=== PATIENT | male | born 1960 | race African-American/Black ===

== ENCOUNTER 2018-04-01 06:02 | Inpatient (IN) | payer MEDICAID ==
[~2018-04-01] VITALS: Ht 185.4 cm; Wt 70.3 kg
[2018-04-01] VITALS (53 sets, daily range): BP systolic 77–172; BP diastolic 43–144
[2018-04-01] MEDS ORDERED: NORMAL SALINE 0.9% 10 ML SYR ONE (07:03)
[2018-04-01] MEDS ORDERED: THROMBIN (BOVINE) 5000 UNITS/VIAL TOP ONE (07:03)
[2018-04-01] MEDS ORDERED: LIDOCAINE HCL/EPINEPHRINE 1%-EPI 1:100,000 20 ML VIAL ONE (07:04)
[2018-04-01] MEDS ORDERED: BACITRACIN 50,000 UNITS/VIAL ONE (07:04)
[2018-04-01] MEDS ORDERED: GELATIN SPONGE,COMPRESSED SZ 100 ONE (07:18)
[2018-04-01] MEDS ORDERED: DEXAMETHASONE 10 MG/ML VIAL IV ONE (07:30)
[2018-04-01 07:45] LABS: BASOPHILS % 0.9 % (0.0-2.0); EOSINOPHILS % 4.1 % (0.0-5.0); HEMATOCRIT. 45.1 % (42.0-52.0); HEMOGLOBIN. 14.6 g/dL (14.0-18.0); MEAN CORPUSCULAR HEMOGLOBIN 26.1 pg (28.0-32.0); MEAN CORPUSCULAR VOLUME 80.6 fL (80.0-94.0); MEAN PLATELET VOLUME 7.9 fl (7.4-10.4); MONOCYTES % 7.6 % (2.0-8.0); NEUTROPHILS % 50.4 % (40.0-76.0); PLATELET 204 x1000/uL (130-400); RED CELL DISTRIBUTION WIDTH 18.8 % (11.6-14.6)
[2018-04-01 07:53] LABS: CHLORIDE 105 mEq/L (98-107)
[2018-04-01 07:56] LABS: PARTIAL THROMBOPLASTIN TIME 35.5 sec (23.4-31.0); PROTHROMBIN TIME 10.1 sec (9.1-11.1)
[2018-04-01 08:35] LABS: CLARITY URINE CLEAR (CLEAR); COLOR URINE YELLOW (YELLOW); KETONES URINE NEGATIVE (NEGATIVE); LEUKOCYTE ESTERASE URINE NEGATIVE (NEGATIVE); NITRITE URINE NEGATIVE (NEGATIVE); OCCULT BLOOD URINE NEGATIVE (NEGATIVE); PROTEIN URINE NEGATIVE (NEGATIVE); SPECIFIC GRAVITY URINE 1.003 (1.005-1.030); UROBILINOGEN URINE 0.2 E.U./dL (0.2-1.0)
[2018-04-01] MEDS ORDERED: DEXT 5%/0.45% NACL 1000ML 1,000 ML IV ONE (09:24)
[2018-04-01 09:35] LABS: *AMPHETAMINES SCREEN URINE NEGATIVE (NEGATIVE); *BARBITURATES SCREEN URINE NEGATIVE (NEGATIVE); *BENZODIAZEPINES SCREEN URINE PRESUMTIVE POSITIVE (NEGATIVE)
[2018-04-01 09:36] LABS: *COCAINE SCREEN URINE PRESUMTIVE POSITIVE (NEGATIVE); CANNABINOID URINE SCREEN NEGATIVE (NEGATIVE); METHADONE URINE SCREEN NEGATIVE (NEGATIVE); OPIATES URINE SCREEN NEGATIVE (NEGATIVE); PHENCYCLIDINE URINE SCREEN NEGATIVE (NEGATIVE)
[2018-04-01] MEDS ORDERED: FENTANYL CITRATE/PF 50MCG/ML 2ML VIAL ONE ×2 (09:38→09:41)
[2018-04-01] MEDS ORDERED: ROCURONIUM BROMIDE 10MG/ML VIAL 5ML IV ONE ×2 (09:39→09:41)
[2018-04-01] MEDS ORDERED: PROPOFOL 200MG/20ML VIAL IV ONE (09:41)
[2018-04-01] MEDS ORDERED: NEOSTIGMINE METHYLSULFATE 1MG/ML 10 ML VIAL ONE (09:41)
[2018-04-01] MEDS ORDERED: MIDAZOLAM HCL 2 MG/2 ML VIAL ONE (09:41)
[2018-04-01] MEDS ORDERED: GLYCOPYRROLATE 0.2 MG/ML 2ML VIAL ONE (09:42)
[2018-04-01] MEDS ORDERED: IPRATROPIUM/ALBUTEROL 0.5-3(2.5)MG/3ML NEB INH PRN (09:45)
[2018-04-01] MEDS ORDERED: NICARDIPINE 100 MG in SODIUM CHLORIDE 0.9% 60 ML IV PRN ×2 (09:45→11:00)
[2018-04-01] MEDS ORDERED: ONDANSETRON HCL 4MG/2ML INJ IV PRN ×2 (09:45→10:30)
[2018-04-01] MEDS ORDERED: VANCOMYCIN HCL 500 MG/VIAL ONE (10:06)
[2018-04-01] MEDS ORDERED: ALBUTEROL 90MCG/PUFF 17GM INHALER INH ONE (10:08)
[2018-04-01] MEDS ORDERED: MEPERIDINE HCL/PF 25MG/ML CPJ IV PRN (10:30)
[2018-04-01] MEDS ORDERED: LABETALOL 5MG/ML SYR 20 MG/4 ML SYRINGE IV PRN (10:30)
[2018-04-01] MEDS ORDERED: HYDROMORPHONE HCL/PF 2MG/ML CPJ IV PRN (10:30)
[2018-04-01] MEDS ORDERED: HYDROMORPHONE HCL/PF 2MG/ML (OR) ONE (10:32)
[2018-04-01] MEDS ORDERED: PROPOFOL 10MG/ML 100ML 100 ML IV SCH (12:00)
[2018-04-01] MEDS ORDERED: LABETALOL HCL 5MG/ML VIAL 20ML IV ONE (12:31)
[2018-04-01] MEDS: NICARDIPINE 100 MG in SODIUM CHLORIDE 0.9% 60 ML IV PRN (13:05)
[2018-04-01] MEDS: PROPOFOL 10MG/ML 100ML 100 ML IV SCH ×2 (13:51→19:53)
[2018-04-01] MEDS: DEXT 5%/LACTATED RINGERS 1,000 ML IV SCH ×2 (14:09→19:53)
[2018-04-01] MEDS: DEXAMETHASONE 4MG/ML 1ML VIAL IV SCH ×3 (14:09→23:45)
[2018-04-01 14:23] LABS: BG BASE EXCESS -11.9 mmol/L (-2.0-2.0); BG FRACTION INSPIRED OXYGEN 50; BG HCO3 ACT 16.5 mmol/L (22.0-26.0); BG METHEMOGLOBIN 0.3 % (0.0-1.5); BG OXYGEN SATURATION 95.9 % (92.0-98.5); BG OXYHEMOGLOBIN 93.7 % (94.0-97.0); BG PCO2 46.7 mmHg (35.0-45.0); BG PEEP (cmH2O) 0 cmH2O; BG PH 7.166 (7.350-7.450); BG PO2 104.2 mmHg (75.0-100.0); BG SAMPLE SITE RIGHT RADIAL; BG TIDAL VOLUME(mL) 500 mL; BG TOTAL HEMOGLOBIN 14.6 g/dL (12.0-18.0); BG VENT MODE VENT - SIMV; BG VENT RATE 10 set
[2018-04-01 15:55] LABS: BG BASE EXCESS -9.9 mmol/L (-2.0-2.0); BG CARBOXYHEMOGLOBIN 1.7 % (0.5-1.5); BG DEOXYHEMOGLOBIN 4.3 % (0.0-5.0); BG FRACTION INSPIRED OXYGEN 50; BG HCO3 ACT 17.4 mmol/L (22.0-26.0); BG METHEMOGLOBIN 0.4 % (0.0-1.5); BG OXYGEN SATURATION 95.6 % (92.0-98.5); BG OXYHEMOGLOBIN 93.6 % (94.0-97.0); BG PCO2 43.4 mmHg (35.0-45.0); BG PH 7.221 (7.350-7.450); BG PO2 95.3 mmHg (75.0-100.0); BG SAMPLE SITE RIGHT RADIAL; BG TIDAL VOLUME(mL) 500 mL; BG TOTAL HEMOGLOBIN 14.4 g/dL (12.0-18.0); BG VENT MODE VENT - A/C; BG VENT RATE 14 set
[2018-04-01] MEDS: VANCOMYCIN 1 G PREMIX 200 ML IV SCH (22:03)
[2018-04-02] VITALS (91 sets, daily range): BP systolic 85–220; BP diastolic 9–164
[2018-04-02] MEDS: PROPOFOL 10MG/ML 100ML 100 ML IV SCH ×2 (01:23→06:45)
[2018-04-02] MEDS: DEXT 5%/LACTATED RINGERS 1,000 ML IV SCH ×2 (05:09→17:04)
[2018-04-02] MEDS: DEXAMETHASONE 4MG/ML 1ML VIAL IV SCH ×4 (05:21→23:56)
[2018-04-02 05:52] LABS: BASOPHILS % 0.2 % (0.0-2.0); HEMATOCRIT. 40.5 % (42.0-52.0); HEMOGLOBIN. 12.8 g/dL (14.0-18.0); LYMPHOCYTES % 14.2 % (20.0-50.0); MEAN CORPUSCULAR HEMOGLOBIN 25.5 pg (28.0-32.0); MEAN CORPUSCULAR VOLUME 80.7 fL (80.0-94.0); MEAN PLATELET VOLUME 8.1 fl (7.4-10.4); MONOCYTES % 3.9 % (2.0-8.0); NEUTROPHILS % 81.7 % (40.0-76.0); PLATELET 186 x1000/uL (130-400); RED BLOOD CELL COUNT 5.02 mill/uL (4.7-6.1); RED CELL DISTRIBUTION WIDTH 19.1 % (11.6-14.6)
[2018-04-02 06:16] LABS: CHLORIDE 106 mEq/L (98-107)
[2018-04-02] MEDS: MORPHINE SULFATE 4 MG/ML CPJ (NOT FOR IM USE) IV PRN ×3 (09:07→23:09)
[2018-04-02 09:20] LABS: BG BASE EXCESS -4.1 mmol/L (-2.0-2.0); BG CARBOXYHEMOGLOBIN 1.1 % (0.5-1.5); BG DEOXYHEMOGLOBIN 2.5 % (0.0-5.0); BG FRACTION INSPIRED OXYGEN 50; BG HCO3 ACT 20.5 mmol/L (22.0-26.0); BG METHEMOGLOBIN 0.4 % (0.0-1.5); BG OXYGEN SATURATION 97.5 % (92.0-98.5); BG PCO2 36.2 mmHg (35.0-45.0); BG PH 7.371 (7.350-7.450); BG PO2 98.7 mmHg (75.0-100.0); BG SAMPLE SITE RIGHT RADIAL; BG TIDAL VOLUME(mL) 550 mL; BG TOTAL HEMOGLOBIN 13.7 g/dL (12.0-18.0); BG VENT MODE VENT - A/C; BG VENT RATE 18 set
[2018-04-02] MEDS: VANCOMYCIN 1 G PREMIX 200 ML IV SCH ×2 (09:55→22:25)
[2018-04-02] MEDS ORDERED: ENOXAPARIN 40MG/0.4ML SYR SUBCUT SCH (13:00)
[2018-04-02 13:05] LABS: BG BASE EXCESS -2.2 mmol/L (-2.0-2.0); BG CARBOXYHEMOGLOBIN 0.9 % (0.5-1.5); BG DEOXYHEMOGLOBIN 6.9 % (0.0-5.0); BG FRACTION INSPIRED OXYGEN 40; BG HCO3 ACT 22.1 mmol/L (22.0-26.0); BG METHEMOGLOBIN 0.5 % (0.0-1.5); BG OXYHEMOGLOBIN 91.7 % (94.0-97.0); BG PCO2 36.5 mmHg (35.0-45.0); BG PO2 68.8 mmHg (75.0-100.0); BG PRESSURE SUPPORT 8; BG SAMPLE SITE LEFT RADIAL; BG TOTAL HEMOGLOBIN 14.4 g/dL (12.0-18.0); BG VENT MODE VENT - CPAP
[2018-04-02] MEDS: NICARDIPINE 100 MG in SODIUM CHLORIDE 0.9% 60 ML IV PRN (17:05)
[2018-04-03] VITALS (65 sets, daily range): BP systolic 32–207; BP diastolic 13–121
[2018-04-03] MEDS: DEXT 5%/LACTATED RINGERS 1,000 ML IV SCH ×4 (02:36→23:29)
[2018-04-03] MEDS: MORPHINE SULFATE 4 MG/ML CPJ (NOT FOR IM USE) IV PRN (02:37)
[2018-04-03] MEDS: DEXAMETHASONE 4MG/ML 1ML VIAL IV SCH ×3 (05:47→18:23)
[2018-04-03] MEDS ORDERED: LISINOPRIL 5MG TABLET PO SCH (08:00)
[2018-04-03] MEDS ORDERED: LISINOPRIL 10MG TABLET PO SCH (08:00)
[2018-04-03] MEDS ORDERED: ZOLPIDEM TARTRATE 5MG TABLET PO PRN (08:00)
[2018-04-03 08:29] LABS: BASOPHILS % 0.1 % (0.0-2.0); HEMATOCRIT. 43.7 % (42.0-52.0); HEMOGLOBIN. 13.9 g/dL (14.0-18.0); LYMPHOCYTES % 8.3 % (20.0-50.0); MEAN CORPUSCULAR HEMOGLOBIN 25.5 pg (28.0-32.0); MEAN CORPUSCULAR VOLUME 79.9 fL (80.0-94.0); MEAN PLATELET VOLUME 7.7 fl (7.4-10.4); MONOCYTES % 3.9 % (2.0-8.0); NEUTROPHILS % 87.7 % (40.0-76.0); PLATELET 181 x1000/uL (130-400); RED BLOOD CELL COUNT 5.47 mill/uL (4.7-6.1); RED CELL DISTRIBUTION WIDTH 18.6 % (11.6-14.6)
[2018-04-03 08:44] LABS: CHLORIDE 107 mEq/L (98-107)
[2018-04-03] MEDS: AMLODIPINE 10MG TABLET PO SCH ×2 (09:00→13:33)
[2018-04-03] MEDS ORDERED: METOPROLOL TARTRATE 25MG TABLET PO SCH (09:00)
[2018-04-03 10:43] LABS: CLARITY URINE CLEAR (CLEAR); COLOR URINE YELLOW (YELLOW); KETONES URINE NEGATIVE (NEGATIVE); LEUKOCYTE ESTERASE URINE NEGATIVE (NEGATIVE); NITRITE URINE NEGATIVE (NEGATIVE); OCCULT BLOOD URINE 1+ (NEGATIVE); PH URINE 6.5 (4.5-8.0); PROTEIN URINE NEGATIVE (NEGATIVE); SPECIFIC GRAVITY URINE 1.012 (1.005-1.030)
[2018-04-03] MEDS: VANCOMYCIN 1 G PREMIX 200 ML IV SCH (11:03)
[2018-04-03] MEDS ORDERED: LISINOPRIL 10MG TABLET PO NR (13:30)
[2018-04-03] MEDS: LISINOPRIL 10MG TABLET PO SCH (18:24)
[2018-04-03] MEDS ORDERED: ATORVASTATIN CALCIUM 40MG TABLET PO SCH (21:00)
[2018-04-04] VITALS (11 sets, daily range): BP systolic 118–161; BP diastolic 69–99
[2018-04-04] MEDS: DEXAMETHASONE 4MG/ML 1ML VIAL IV SCH ×2 (00:30→06:46)
[2018-04-04 05:38] LABS: HEMATOCRIT. 40.9 % (42.0-52.0); HEMOGLOBIN. 13.1 g/dL (14.0-18.0); MEAN CORPUSCULAR HEMOGLOBIN 25.8 pg (28.0-32.0); MEAN CORPUSCULAR VOLUME 80.7 fL (80.0-94.0); RED BLOOD CELL COUNT 5.08 mill/uL (4.7-6.1); RED CELL DISTRIBUTION WIDTH 18.5 % (11.6-14.6)
[2018-04-04 06:49] LABS: CHLORIDE 106 mEq/L (98-107)
[2018-04-04 07:30] LABS: PLATELET ESTIMATE SLIGHTLY DECREASED
[2018-04-04 07:31] LABS: MEAN PLATELET VOLUME 7.6 fl (7.4-10.4); PLATELET 123 x1000/uL (130-400)
[2018-04-04] MEDS: AMLODIPINE 10MG TABLET PO SCH (08:27)
[2018-04-04] MEDS: LISINOPRIL 10MG TABLET PO SCH (08:28)
[2018-04-04] MEDS: MORPHINE SULFATE 4 MG/ML CPJ (NOT FOR IM USE) IV PRN (08:28)
== END 2018-04-04 12:20 | disposition left against medical advice (07) | DRG 23 ==
LOC: ER 06:02 → ORIP 07:40 → EDBEDREQ 07:48 → MICUSO 10:44 → 6WST 04-04 10:28
PROVIDERS: ADMIT Internal Medicine; ATTEND Internal Medicine
PROC: 0RB30ZZ Excision of Cervical Vertebral Disc, Open Approach (ICD-10-PCS; 2018-04-01)
PROC: 4A11X4G Monitoring of Peripheral Nervous Electrical Activity, Intraoperative, External Approach (ICD-10-PCS; 2018-04-01)
PROC: 0RG20K0 Fusion of 2 or more Cervical Vertebral Joints with Nonautologous Tissue Substitute, Anterior Approach, Anterior Column, Open Approach (ICD-10-PCS; principal; 2018-04-01 07:00)
DX: G95.20 Unspecified cord compression (principal); J96.90 Respiratory failure, unspecified, unspecified whether with hypoxia or hypercapnia; Z99.11 Dependence on respirator [ventilator] status; M47.12 Other spondylosis with myelopathy, cervical region; R13.10 Dysphagia, unspecified; M48.02 Spinal stenosis, cervical region; G82.50 Quadriplegia, unspecified; D64.9 Anemia, unspecified; I50.9 Heart failure, unspecified; I11.0 Hypertensive heart disease with heart failure; F20.9 Schizophrenia, unspecified; J43.9 Emphysema, unspecified; B35.1 Tinea unguium; E78.5 Hyperlipidemia, unspecified; F14.10 Cocaine abuse, uncomplicated; F17.210 Nicotine dependence, cigarettes, uncomplicated; I25.10 Atherosclerotic heart disease of native coronary artery without angina pectoris; F19.10 Other psychoactive substance abuse, uncomplicated; R73.9 Hyperglycemia, unspecified; M50.90 Cervical disc disorder, unspecified, unspecified cervical region; Z79.899 Other long term (current) drug therapy; Z87.11 Personal history of peptic ulcer disease; Z95.5 Presence of coronary angioplasty implant and graft; Z88.0 Allergy status to penicillin; Z86.11 Personal history of tuberculosis; Z71.51 Drug abuse counseling and surveillance of drug abuser; Z53.21 Procedure and treatment not carried out due to patient leaving prior to being seen by health care provider
CPT/HCPCS: 36415; 36600; 71045; 72040; 72141; 80048; 80305; 82375; 82805; 83880; 84478; 88304; 88311; 92610; 93005; 93306; 93970; 94002; 94003; 94640; 95925; 95926; 95928; 95929; 96374; 97163; 97167; 99291; A4216; A6261; C1713; J1100; J1170; J2250; J2270; J2405; J2704; J2710; J3010; J3370; J3490; J7050; J7620; L0172

== ENCOUNTER 2018-04-07 13:10 | Emergency (ER) | payer MEDICAID ==
[~2018-04-07] VITALS: Ht 180.3 cm; Wt 72.0 kg
[2018-04-07 13:14] VITALS: BP 179/111
== END 2018-04-07 17:21 | disposition home or self-care (01) ==
LOC: ER 13:10
DX: Z76.0 Encounter for issue of repeat prescription (principal); I10 Essential (primary) hypertension; Z88.0 Allergy status to penicillin
CPT/HCPCS: 99283

== ENCOUNTER 2018-09-22 14:47 | Emergency (ER) | payer MEDICAID ==
[~2018-09-22] VITALS: Ht 180.3 cm; Wt 68.0 kg
[2018-09-22 15:00] VITALS: BP 124/79
[2018-09-22] MEDS ORDERED: ONDANSETRON HCL 4MG/2ML INJ IV STA (18:23)
[2018-09-22] MEDS ORDERED: MORPHINE SULFATE 4 MG/ML CPJ (NOT FOR IM USE) IV STA (18:23)
[2018-09-22] MEDS ORDERED: SODIUM CHLORIDE 0.9% 1000ML BAG (SEPSIS BOLUS) IV ONE (18:30)
[2018-09-22] MEDS ORDERED: VANCOMYCIN 1 G PREMIX 200 ML IV ONE (18:30)
[2018-09-23] MEDS ORDERED: ALBU05 NEB (23:43)
== END 2018-09-22 19:19 | disposition left against medical advice (07) ==
LOC: ER 14:47 → CANBEDREQ 19:52
DX: K61.1 Rectal abscess (principal); I10 Essential (primary) hypertension; F17.200 Nicotine dependence, unspecified, uncomplicated; Z98.890 Other specified postprocedural states; Z88.0 Allergy status to penicillin
CPT/HCPCS: 99281; J7030

== ENCOUNTER 2018-09-23 15:57 | Inpatient (IN) | payer MEDICAID ==
[~2018-09-23] VITALS: Ht 180.3 cm; Wt 79.8 kg
[2018-09-23] MEDS ORDERED: ONDANSETRON HCL 4MG/2ML INJ IV STA (16:25)
[2018-09-23] MEDS ORDERED: MORPHINE SULFATE 4 MG/ML CPJ (NOT FOR IM USE) IV STA (16:25)
[2018-09-23] MEDS ORDERED: VANCOMYCIN 1 G PREMIX 200 ML IV ONE (16:30)
[2018-09-23] MEDS ORDERED: SODIUM CHLORIDE 0.9% 1000ML BAG (SEPSIS BOLUS) IV ONE (16:30)
[2018-09-23] MEDS ORDERED: LEVOFLOXACIN 500MG PREMIX 100 ML IV ONE (16:30)
[2018-09-23 16:49] LABS: BASOPHILS % 0.3 % (0.0-2.0); EOSINOPHILS % 0.5 % (0.0-5.0); HEMATOCRIT. 35.2 % (42.0-52.0); HEMOGLOBIN. 11.1 g/dL (14.0-18.0); LYMPHOCYTES % 9.1 % (20.0-50.0); MEAN CORPUSCULAR HEMOGLOBIN 25.8 pg (28.0-32.0); MEAN CORPUSCULAR VOLUME 81.6 fL (80.0-94.0); MEAN PLATELET VOLUME 8.8 fl (7.4-10.4); NEUTROPHILS % 83.1 % (40.0-76.0); PLATELET 223 x1000/uL (130-400); RED BLOOD CELL COUNT 4.31 mill/uL (4.7-6.1); RED CELL DISTRIBUTION WIDTH 18.4 % (11.6-14.6)
[2018-09-23 16:54] LABS: CHLORIDE 109 mEq/L (98-107)
[2018-09-23 16:55] LABS: PROTHROMBIN TIME 10.8 sec (9.6-11.0)
[2018-09-23] MEDS ORDERED: LIDOCAINE 1%/EPI 1:100,000 10 ML VIAL IJ ONE (17:30)
[2018-09-23] MEDS ORDERED: LIDOCAINE HCL/EPINEPHRINE 1%-EPI 1:100,000 20 ML VIAL INFIL ONE (18:00)
[2018-09-23] MEDS ORDERED: IOHEXOL-300 100 ML BOTTLE ONE (18:54)
[2018-09-23 23:35] VITALS: BP 114/83
[2018-09-23] MEDS ORDERED: ALBU05 NEB (23:43)
[2018-09-24] VITALS (7 sets, daily range): BP systolic 104–130; BP diastolic 51–73
[2018-09-24] MEDS ORDERED: ZOLP5TAB2 MT (00:57)
[2018-09-24] MEDS ORDERED: PNEUMOCOCCAL 23-VAL P-SAC VAC 0.5 ML IM ONE (08:00)
[2018-09-24] MEDS: MORPHINE SULFATE 4 MG/ML CPJ (NOT FOR IM USE) IV PRN ×3 (11:05→21:35)
[2018-09-24] MEDS: LEVOFLOXACIN 500MG PREMIX 100 ML IV SCH (16:34)
[2018-09-24 17:23] LABS: CLARITY URINE CLEAR (CLEAR); COLOR URINE YELLOW (YELLOW); KETONES URINE NEGATIVE (NEGATIVE); LEUKOCYTE ESTERASE URINE NEGATIVE (NEGATIVE); NITRITE URINE NEGATIVE (NEGATIVE); OCCULT BLOOD URINE NEGATIVE (NEGATIVE); PROTEIN URINE NEGATIVE (NEGATIVE); SPECIFIC GRAVITY URINE 1.019 (1.005-1.030)
[2018-09-24 17:38] LABS: *AMPHETAMINES SCREEN URINE NEGATIVE (NEGATIVE); *BARBITURATES SCREEN URINE NEGATIVE (NEGATIVE); *BENZODIAZEPINES SCREEN URINE NEGATIVE (NEGATIVE); *COCAINE SCREEN URINE NEGATIVE (NEGATIVE); METHADONE URINE SCREEN NEGATIVE (NEGATIVE); OPIATES URINE SCREEN PRESUMTIVE POSITIVE (NEGATIVE)
[2018-09-24 17:39] LABS: CANNABINOID URINE SCREEN NEGATIVE (NEGATIVE); PHENCYCLIDINE URINE SCREEN NEGATIVE (NEGATIVE)
[2018-09-24] MEDS: VANCOMYCIN 1 G PREMIX 200 ML IV SCH (17:46)
[2018-09-24] MEDS ORDERED: AMLO10TA4 PO (19:42)
[2018-09-24] MEDS ORDERED: ATOR80TA PO (19:42)
[2018-09-24] MEDS ORDERED: METO25TA6 PO (19:42)
[2018-09-24] MEDS ORDERED: LISI2.5T47 PO (19:42)
[2018-09-24] MEDS ORDERED: ASPI-1158 PO (19:42)
[2018-09-24] MEDS ORDERED: MEDICATION NOT ON FORMULARY EA (Metoprolol Tartrate 25 MG) PO SCH (19:45)
[2018-09-24] MEDS ORDERED: LISINOPRIL 2.5 MG PO SCH (19:45)
[2018-09-24] MEDS ORDERED: BACLOFEN 10MG TABLET PO PRN (20:00)
[2018-09-24] MEDS ORDERED: IPRATROPIUM/ALBUTEROL 0.5-3(2.5)MG/3ML NEB HHN PRN (20:00)
[2018-09-24] MEDS: ENOXAPARIN 40MG/0.4ML SYR SUBCUT SCH (21:00)
[2018-09-24] MEDS ORDERED: MEDICATION NOT ON FORMULARY EA (Atorvastatin Calcium (Lipitor) 80 MG) PO SCH (21:00)
[2018-09-24] MEDS: AMLODIPINE 10MG TABLET PO SCH (21:27)
[2018-09-24] MEDS: METOPROLOL TARTRATE 25MG TABLET PO SCH (21:27)
[2018-09-24] MEDS: LISINOPRIL 2.5MG TABLET PO SCH (21:28)
[2018-09-24] MEDS: ATORVASTATIN CALCIUM 40MG TABLET PO SCH (21:28)
[2018-09-25] VITALS: BP 122/68
[2018-09-25] MEDS: ZOLPIDEM TARTRATE 5MG TABLET PO PRN ×3 (02:00→23:51)
[2018-09-25 04:00] VITALS: BP 132/74
[2018-09-25] MEDS: VANCOMYCIN 1 G PREMIX 200 ML IV SCH ×3 (04:10→18:52)
[2018-09-25 08:00] VITALS: BP 114/62
[2018-09-25] MEDS ORDERED: ENOXAPARIN 40MG/0.4ML SYR SUBCUT SCH (09:00)
[2018-09-25 09:47] LABS: HEMATOCRIT. 31.4 % (42.0-52.0); HEMOGLOBIN. 10.3 g/dL (14.0-18.0); MEAN CORPUSCULAR VOLUME 79.6 fL (80.0-94.0); MEAN PLATELET VOLUME 8.3 fl (7.4-10.4); PLATELET 260 x1000/uL (130-400); RED BLOOD CELL COUNT 3.94 mill/uL (4.7-6.1); RED CELL DISTRIBUTION WIDTH 17.6 % (11.6-14.6)
[2018-09-25] MEDS: ASPIRIN 81MG TABLET PO SCH (09:47)
[2018-09-25] MEDS: METOPROLOL TARTRATE 25MG TABLET PO SCH ×2 (09:48→21:36)
[2018-09-25] MEDS: AMLODIPINE 10MG TABLET PO SCH (09:48)
[2018-09-25] MEDS: LISINOPRIL 2.5MG TABLET PO SCH (09:49)
[2018-09-25 11:59] LABS: PLATELET ESTIMATE NORMAL
[2018-09-25 12:00] VITALS: BP 103/78
[2018-09-25 16:00] VITALS: BP 108/76
[2018-09-25] MEDS: LEVOFLOXACIN 500MG PREMIX 100 ML IV SCH (16:04)
[2018-09-25 20:00] VITALS: BP 137/80
[2018-09-25] MEDS: ATORVASTATIN CALCIUM 40MG TABLET PO SCH (21:36)
[2018-09-25] MEDS: ENOXAPARIN 40MG/0.4ML SYR SUBCUT SCH (21:39)
[2018-09-26] VITALS: BP 108/66
[2018-09-26 04:00] VITALS: BP 116/60
[2018-09-26 05:54] LABS: CHLORIDE 106 mEq/L (98-107)
[2018-09-26] MEDS: VANCOMYCIN 1 G PREMIX 200 ML IV SCH (06:28)
[2018-09-26 08:00] VITALS: BP 134/82
[2018-09-26] MEDS: METOPROLOL TARTRATE 25MG TABLET PO SCH ×2 (08:49→20:39)
[2018-09-26] MEDS: ASPIRIN 81MG TABLET PO SCH (08:49)
[2018-09-26] MEDS: HYDROCODONE/ACETAMINOPHEN 5/325MG TABLET PO PRN ×2 (08:50→17:15)
[2018-09-26] MEDS: AMLODIPINE 10MG TABLET PO SCH (08:50)
[2018-09-26] MEDS: LISINOPRIL 2.5MG TABLET PO SCH (09:00)
[2018-09-26 12:10] VITALS: BP 113/69
[2018-09-26 15:41] VITALS: BP 115/72
[2018-09-26] MEDS: VANCOMYCIN 750 MG PREMIX 150 ML IV SCH (17:14)
[2018-09-26 20:00] VITALS: BP 127/77
[2018-09-26] MEDS: ZOLPIDEM TARTRATE 5MG TABLET PO PRN (20:38)
[2018-09-26] MEDS: ATORVASTATIN CALCIUM 40MG TABLET PO SCH (20:38)
[2018-09-26] MEDS: ENOXAPARIN 40MG/0.4ML SYR SUBCUT SCH (20:39)
[2018-09-27] VITALS: BP 159/87
[2018-09-27] MEDS: ZOLPIDEM TARTRATE 5MG TABLET PO PRN ×2 (00:04→21:41)
[2018-09-27 04:00] VITALS: BP 127/70
[2018-09-27] MEDS: VANCOMYCIN 750 MG PREMIX 150 ML IV SCH ×2 (05:19→17:56)
[2018-09-27 08:00] VITALS: BP 147/93
[2018-09-27] MEDS: AMLODIPINE 10MG TABLET PO SCH (08:39)
[2018-09-27] MEDS: LISINOPRIL 2.5MG TABLET PO SCH (08:39)
[2018-09-27] MEDS: ASPIRIN 81MG TABLET PO SCH (08:40)
[2018-09-27] MEDS: METOPROLOL TARTRATE 25MG TABLET PO SCH ×2 (09:00→21:41)
[2018-09-27 12:00] VITALS: BP 126/73
[2018-09-27 20:00] VITALS: BP 153/85
[2018-09-27] MEDS: ENOXAPARIN 40MG/0.4ML SYR SUBCUT SCH (21:40)
[2018-09-27] MEDS: ATORVASTATIN CALCIUM 40MG TABLET PO SCH (21:40)
[2018-09-28] VITALS: BP 111/58
[2018-09-28] MEDS: VANCOMYCIN 750 MG PREMIX 150 ML IV SCH (06:00)
[2018-09-28 07:47] LABS: CHLORIDE 107 mEq/L (98-107)
[2018-09-28 08:00] VITALS: BP 140/84
[2018-09-28] MEDS: METOPROLOL TARTRATE 25MG TABLET PO SCH (09:13)
[2018-09-28] MEDS: LISINOPRIL 2.5MG TABLET PO SCH (09:13)
[2018-09-28] MEDS: AMLODIPINE 10MG TABLET PO SCH (09:13)
[2018-09-28] MEDS: ASPIRIN 81MG TABLET PO SCH (09:14)
[2018-09-28 13:26] VITALS: BP 140/84
== END 2018-09-28 13:47 | disposition home health service (06) | DRG 710 ==
LOC: ER 16:02 → 8WST 17:18 → EDBEDREQ 17:21 → ENRESERV 20:25 → 6EST 09-25 11:33
PROVIDERS: ADMIT Internal Medicine; ATTEND Internal Medicine
PROC: 0J990ZZ Drainage of Buttock Subcutaneous Tissue and Fascia, Open Approach (ICD-10-PCS; principal; 2018-09-23)
DX: A41.02 Sepsis due to Methicillin resistant Staphylococcus aureus (principal); E87.8 Other disorders of electrolyte and fluid balance, not elsewhere classified; E44.0 Moderate protein-calorie malnutrition; E83.51 Hypocalcemia; I69.354 Hemiplegia and hemiparesis following cerebral infarction affecting left non-dominant side; I25.10 Atherosclerotic heart disease of native coronary artery without angina pectoris; J44.9 Chronic obstructive pulmonary disease, unspecified; I10 Essential (primary) hypertension; F41.9 Anxiety disorder, unspecified; G47.00 Insomnia, unspecified; E78.5 Hyperlipidemia, unspecified; L02.31 Cutaneous abscess of buttock; K61.1 Rectal abscess; F17.200 Nicotine dependence, unspecified, uncomplicated; Z90.49 Acquired absence of other specified parts of digestive tract; Z95.5 Presence of coronary angioplasty implant and graft; Z90.81 Acquired absence of spleen; I25.2 Old myocardial infarction; Z88.0 Allergy status to penicillin; Z79.51 Long term (current) use of inhaled steroids; Z79.899 Other long term (current) drug therapy
CPT/HCPCS: 10060; 36415; 74177; 80048; 80202; 80305; 83605; 84145; 87070; 87077; 90732; 93005; 96365; 96375; 99291; C1893; J1650; J1956; J2270; J2405; J3370; J3490; J7030; J7040; J7050; Q9967

== ENCOUNTER 2018-10-15 11:40 | Emergency (ER) | payer MEDICAID ==
[~2018-10-15] VITALS: Ht 180.3 cm; Wt 79.0 kg
[~2018-10-15 11:40] MED LIST: ALBU05 NEB; AMLO10TA4 PO; ASPI-1158 PO; ATOR80TA PO; LISI2.5T47 PO; METO25TA6 PO; ZOLP5TAB2 MT
[2018-10-15] MEDS ORDERED: DOXYCYCLINE HYCLATE 100MG CAPSULE PO ONE (12:15)
[2018-10-15] MEDS ORDERED: SULFAMETHOXAZOLE/TRIMETHOPRIM 800/160MG TABLET PO ONE (12:15)
[2018-10-15 12:45] VITALS: BP 147/97
== END 2018-10-15 12:49 | disposition home or self-care (01) ==
LOC: ER 11:40
DX: L03.317 Cellulitis of buttock (principal); F17.200 Nicotine dependence, unspecified, uncomplicated; J44.9 Chronic obstructive pulmonary disease, unspecified; E78.00 Pure hypercholesterolemia, unspecified; I25.2 Old myocardial infarction; Z86.73 Personal history of transient ischemic attack (TIA), and cerebral infarction without residual deficits; Z90.81 Acquired absence of spleen; Z88.0 Allergy status to penicillin; Z79.899 Other long term (current) drug therapy
CPT/HCPCS: 99283; Z7610

== ENCOUNTER 2020-04-15 07:58 | Emergency (ER) | payer MEDICAID ==
[~2020-04-15] VITALS: Ht 182.9 cm; Wt 77.0 kg
[2020-04-15] MEDS ORDERED: ASPIRIN 81MG TABLET PO ONE (09:15)
[2020-04-15] MEDS ORDERED: LABETALOL HCL 20MG/4ML CARPUJECT IV ONE (09:15)
[2020-04-15] MEDS ORDERED: MORPHINE SULFATE 2 MG/ML CPJ (NOT FOR IM USE) IV ONE (09:15)
[2020-04-15] MEDS ORDERED: LABETALOL 5MG/ML SYR 20 MG/4 ML SYRINGE IV NR (09:30)
[2020-04-15 10:40] LABS: BASOPHILS % 0.3 % (0.0-2.0); EOSINOPHILS % 1.8 % (0.0-5.0); HEMATOCRIT. 43.9 % (42.0-52.0); HEMOGLOBIN. 13.8 g/dL (14.0-18.0); LYMPHOCYTES % 27.2 % (20.0-50.0); MEAN CORPUSCULAR HEMOGLOBIN 27.6 pg (28.0-32.0); MEAN CORPUSCULAR VOLUME 87.6 fL (80.0-94.0); MEAN PLATELET VOLUME 8.8 fl (7.4-10.4); MONOCYTES % 8.3 % (2.0-8.0); NEUTROPHILS % 62.4 % (40.0-76.0); PLATELET 133 x1000/uL (130-400); RED BLOOD CELL COUNT 5.01 mill/uL (4.7-6.1); RED CELL DISTRIBUTION WIDTH 21.1 % (11.6-14.6)
[2020-04-15 10:45] LABS: CHLORIDE 112 mEq/L (98-107)
[2020-04-15] MEDS: NITROGLYCERIN 0.4MG TABLET SL SL PRN ×3 (13:18→13:28)
[2020-04-15] MEDS ORDERED: AMLODIPINE 5MG TABLET PO NR (14:00)
[2020-04-15] MEDS ORDERED: IBUPROFEN 600MG TABLET PO PRN (14:30)
[2020-04-15] MEDS ORDERED: HYDROCODONE/ACETAMINOPHEN 5/325MG TABLET PO PRN (14:30)
[2020-04-15 15:06] LABS: OPIATES URINE SCREEN NEGATIVE (NEGATIVE)
[2020-04-15 15:07] LABS: *AMPHETAMINES SCREEN URINE NEGATIVE (NEGATIVE); *COCAINE SCREEN URINE NEGATIVE (NEGATIVE); PHENCYCLIDINE URINE SCREEN NEGATIVE (NEGATIVE)
[2020-04-15 15:08] LABS: METHADONE URINE SCREEN NEGATIVE (NEGATIVE)
[2020-04-15 15:10] LABS: *BARBITURATES SCREEN URINE NEGATIVE (NEGATIVE); *BENZODIAZEPINES SCREEN URINE PRESUMTIVE POSITIVE (NEGATIVE); CANNABINOID URINE SCREEN NEGATIVE (NEGATIVE)
[2020-04-15 15:25] VITALS: BP 162/113
[2020-04-15] MEDS ORDERED: AMLODIPINE 5MG TABLET PO SCH (21:00)
[2020-04-15] MEDS ORDERED: METOPROLOL TARTRATE 25MG TABLET PO SCH (21:00)
[2020-04-15] MEDS ORDERED: ATORVASTATIN CALCIUM 40MG TABLET PO SCH (21:00)
[2020-04-16] MEDS ORDERED: ASPIRIN 81MG EC TABLET PO SCH (09:00)
[2020-04-16] MEDS ORDERED: CLOPIDOGREL 75MG TABLET PO SCH (09:00)
== END 2020-04-15 16:15 | disposition home or self-care (01) ==
LOC: ER 08:17 → EDBEDREQTM 12:48 → EDBEDREQ 12:48 → SUPCPDRO 13:49 → ER 16:15 → CANBEDREQ 16:22
DX: R07.9 Chest pain, unspecified (principal); I16.0 Hypertensive urgency; I25.2 Old myocardial infarction; I10 Essential (primary) hypertension; E78.5 Hyperlipidemia, unspecified; I25.10 Atherosclerotic heart disease of native coronary artery without angina pectoris; Z88.0 Allergy status to penicillin; Z95.5 Presence of coronary angioplasty implant and graft; Z79.02 Long term (current) use of antithrombotics/antiplatelets; Z79.82 Long term (current) use of aspirin; Z86.73 Personal history of transient ischemic attack (TIA), and cerebral infarction without residual deficits; Z79.899 Other long term (current) drug therapy; Z87.891 Personal history of nicotine dependence
CPT/HCPCS: 36415; 71045; 80053; 80305; 83880; 84484; 85025; 93005; 96374; 96375; 99285; J2270; J3490; Z7610